=== PATIENT | female | born 1970 | race African-American/Black ===

== ENCOUNTER 2019-03-19 00:13 | Emergency (ER) | payer OTHER ==
[2019-03-19 01:14] VITALS: TEMP 98.2; BMI 44.4
--- NOTE | 2019-03-19 01:40 | PDOC ---
History of Present Illness - General Chief Complaint: Shortness of Breath Stated Complaint: DIFFICULTY BREATHING Time Seen by Provider: 03/19/19 00:52 History Source: Patient Exam Limitations: No Limitations - History of Present Illness Initial Comments: 03/19/19 01:33 48yo F with PMH of HTN presenting to ED with complaints of SOB. Pt states she has been feeling short of breath for the past week or so. She went to urgent care 2d ago was diagnosed with bronchitis and given abx, inhaler and prednisone. Since starting the antibiotics, she has been having occasional coughs productive of yellow phlegm. She states that when she got out of bed to use the restroom tonight she felt so short of breath that she called ems. Pt says that she has felt more short of breath with exertion for the past week and it has not changed in intensity. Also endorses bilateral leg swelling and weight gain. She also feels discomfort when taking in deep breaths located substernally. Denies fevers, chills, chest pain, abdominal pain, n/v/d, urinary symptoms, lightheadedness, recent travel, recent surgeries, history of blood clots, calf pain. Her father had an KS in his 50s. She was placed on NRB by EMS , she did not get any treatments. PMD: C PMH: see hpi PSH: none Meds: Enalapril, Zytec Allergies: PCN (hives) Social: 10 cigarettes/day Past History - Past Medical History Allergies/Adverse Reactions: Allergies Allergy/AdvReac Type Severity Reaction Status Date / Time Penicillins Allergy Intermediate Swelling Verified 12/16/14 17:04 Home Medications: Ambulatory Orders Albuterol 2.5/Ipratropium 0.5 [Duoneb -] 1 amp NEB Q4H #20 amp 03/19/19 Albuterol Sulfate Inhaler - [Ventolin Hfa Inhaler -] 1 - 2 inh PO Q4H 03/19/19 Azithromycin [Zithromax -] 250 mg PO DAILY 03/19/19 Enalapril Maleate [Vasotec -] 10 mg PO DAILY 03/19/19 Nebulizer [Aeroeclipse II] 1 each MC DAILY #1 each 03/19/19 HTN: Yes - Surgical History Abdominal Surgery: Yes Appendectomy: Yes - Suicide/Smoking/Psychosocial Hx Smoking History: Never smoked Have you smoked in the past 12 months: No Number of Cigarettes Smoked Daily: 8 Information on smoking cessation initiated: No Hx Alcohol Use: No Drug/Substance Use Hx: No Substance Use Type: None Review of Systems - Review of Systems Constitutional: No: Chills, Fever HEENTM: No: Symptoms Reported Respiratory: Yes: See HPI, Cough, Shortness of Breath. No: Wheezing Cardiac (ROS): No: Chest Pain, Lightheadedness, Palpitations, Syncope, Chest Tightness ABD/GI: No: Symptoms Reported : No: Symptoms Reported Musculoskeletal: No: Symptoms Reported Integumentary: No: Symptoms Reported Neurological: No: Symptoms reported *Physical Exam - Vital Signs Last Vital Signs Temp Pulse Resp BP Pulse Ox 98.2 F 116 H 22 H 163/96 98 03/19/19 01:10 03/19/19 01:10 03/19/19 01:10 03/19/19 01:10 03/19/19 01:10 - Physical Exam General Appearance: Yes: Appropriately Dressed, Obese. No: Apparent Distress HEENT: positive: EOMI, FILIPE, Normal ENT Inspection Neck: positive: Trachea midline, Supple. negative: Lymphadenopathy (R), Lymphadenopathy (L) Respiratory/Chest: positive: Wheezing (at bases) Cardiovascular: positive: S1, S2, Tachycardia. negative: Edema, JVD, Murmur Vascular Pulses: Dorsalis-Pedis (R): 2+, Doralis-Pedis (L): 2+ Gastrointestinal/Abdominal: positive: Normal Bowel Sounds, Soft Musculoskeletal: negative: CVA Tenderness Extremity: positive: Normal Capillary Refill. negative: Swelling, Calf Tenderness, Erythema Integumentary: positive: Normal Color, Dry, Warm Neurologic: positive: surgical services assistant II-XII NML intact, Fully Oriented, Alert, Normal Mood/ Affect, Normal Response, Motor Strength / ED Treatment Course - LABORATORY CBC & Chemistry Diagram: 03/19/19 01:26 03/19/19 01:26 - RADIOLOGY Radiology Studies Ordered: Category Date Time Status CHEST PA & LAT [RAD] Stat Radiology 03/19/19 00:53 Ordered Medical Decision Making - Medical Decision Making 03/19/19 01:39 48yo F with PMH of HTN presenting to ED with complaints of SOB. Pt states she has been feeling short of breath for the past week or so. She went to urgent care 2d ago was diagnosed with bronchitis and given abx, inhaler and prednisone. Since starting the antibiotics, she has been having occasional coughs productive of yellow phlegm. She states that when she got out of bed to use the restroom tonight she felt so short of breath that she called ems. Pt says that she has felt more short of breath with exertion for the past week and it has not changed in intensity. Also endorses bilateral leg swelling and weight gain. She also feels discomfort when taking in deep breaths located substernally. Denies fevers, chills, chest pain, abdominal pain, n/v/d, urinary symptoms, lightheadedness, recent travel, recent surgeries, history of blood clots, calf pain. Her father had an KS in his 50s. She was placed on NRB by EMS , she did not get any treatments. Vitals: tachycardia, tachypnea, afebrile PE: slight wheezing in lower lung mabry, tachycardic, no pitting edema, obese Ddx includes but not limited to acs, pe, chf, copd, bronchitis, pna, pneumomediastinum, pleurisy, effusion, malignancy, electrolyte/metabolic abnormality -ekg, cxr -trop, cmp, cbc, d-dimer -iv fluids, duoneb 03/19/19 02:11 ekg: sinus tachycardia at 109bpm, pr 128, qtc 457. no dontrell or depresions, no twi. 03/19/19 07:52 labs show white count (pt on steroids) all other labs wnl. CTA negative for PE and negative for acute lung pathology. pt states she is feeling better, feels better with nebulized treatments. will give rx for nebulizer. negative trop, negative CTA. pt stable for dc home. given return precautions. pt verbalized understanding. *DC/Admit/Observation/Transfer Diagnosis at time of Disposition: SOB (shortness of breath) - Discharge Dispostion Disposition: HOME Condition at time of disposition: Improved Decision to Admit order: No - Prescriptions Prescriptions: Albuterol 2.5/Ipratropium 0.5 [Duoneb -] 1 amp NEB Q4H #20 amp Nebulizer [Aeroeclipse II] 1 each DAILY #1 each - Referrals Referrals: Cheko Harmon MD [Staff Physician] - - Patient Instructions Printed Discharge Instructions: DI for Shortness of Breath Additional Instructions: You were seen in the emergency room today for shortness of breath. The CT scan was normal and your blood work is also normal. This could be due to the bronchitis. I highly recommend that you make an appointment with your primary care doctor in the next few days. Try to schedule an appointment on Friday. A prescription for the nebulizers was sent to your pharmacy. This may or may not be covered by your insurance. Continue taking your mediations as prescribed. I recommend making an appointment with a acetone button paster. Information is provided below. Come back to the emergency room if you continue to feel short of breath or if symptoms get worse, you have chest pain, you develop fever or if any new concerning symptom develops. Thank you - Post Discharge Activity
[2019-03-19] MEDS ORDERED: SODIUM CHLORIDE 1,000 ML IV STA (01:41)
[2019-03-19] MEDS ORDERED: ALBUTEROL SO4 2.5/IPRATROPIUM 0.5 INH SOL 3 ML VIAL.NEB. NEB ONE ×2 (01:48→01:54)
[2019-03-19 01:59] LABS: BASO % 0.1 % (0-2.0); HEMATOCRIT 41.3 % (32.4-45.2); HEMOGLOBIN 13.3 GM/dL (10.7-15.3); LYMPH % 7.9 % (8-40); MCH 26.5 pg (25.7-33.7); MCHC 32.3 g/dl (32.0-36.0); MEAN CELL VOLUME 82.1 fl (80-96); MEAN PLT VOLUME 8.3 fl (7.5-11.1); MONO % 3.8 % (3.8-10.2); NEUT % 88.2 % (42.8-82.8); PLATELET COUNT 233 K/MM3 (134-434); RBC 5.03 M/mm3 (3.60-5.2); RDW 18.3 % (11.6-15.6); WHITE BLOOD COUNT 14.8 K/mm3 (4.0-10.0)
--- NOTE | 2019-03-19 02:16 | PDOC ---
Documentation entered by Foster Saldana SCRIBE, acting as scribe for Ghislaine Koehler MD. Ghislaine Koehler MD: This documentation has been prepared by the Les verma Xhesika, SCRIBE, under my direction and personally reviewed by me in its entirety. I confirm that the documentation accurately reflects all work, treatment, procedures, and medical decision making performed by me. Attending Attestation - Resident Resident Name: Grace Sepulveda - ED Attending Attestation I have performed the following: I have examined & evaluated the patient, The case was reviewed & discussed with the resident, I agree w/resident's findings & plan - HPI HPI: 03/19/19 01:33 The patient is a 48 year old female with a significant medical history of HTN who present to the ED with 1 week of SOB; tonight she got up to go the bathroom , sat down and felt winded and "could not catch my breath." The patient states she went to Urgent Care ~2 days ago, was diagnosed with bronchitis likely from allergies and was started on z pack and prednisone with albuterol inhaler. The patient states she has been endorsing cough with yellow phlegm ever since she started her medication and the albuterol. Patient notes she has been endorsing bilateral leg swelling and chest discomfort with deep inspiration. previously used a diuretic for lower extrem fluid retention. Patient notes she has a family history of heart problems (father from a heart attack). no travel. no sick contacts. no congestion. The patient denies headache and dizziness. Denies fever, chills, nausea, vomiting, diarrhea and constipation. no syncope. Denies dysuria, frequency, urgency and hematuria. Allergies: Penicillins 03/19/19 02:11 - Physicial Exam PE: 03/19/19 01:34 Agree with the resident's HPI and PE as documented in the electronic medical record. NAD, well appearing, morbidly obese, EOMI, PERRL, nl conjunctiva, anicteric; neck supple. lungs clear, +tachycardic, abdomen soft nontender. Back nontender. PUTNAM x4, no focal neuro deficits. No peripheral edema. normal color for ethnicity , WWP. 03/19/19 02:13 - Medical Decision Making 03/19/19 02:13 See HPI for details. Prior notes reviewed, including admissions, discharges and consultations. Vital signs reviewed, +tachycardic. DDx SOB: ACS, PE, PTX, CHF, COPD exac, pulmonary edema, pleurisy, pneumonia, viral syndrome. effusion. anemia, electrolyte/metabolic derangements. laboratory results and imaging reviewed, basic labs and lytes wnl, cards panel, trop, d dimer, cxr to check for edema/infection wells score 1.5 for tachycardia can dimer EKG normal sinus rhythm at 109 bpm, no interval abnormalities, narrow QRS, ST and T wave segments and morphology normal. ED course -interventions: duoneb x1 reassess pending labs/dimer/cxr, dispo pending reeval, s/o to Dr Rahman overnight for full disposition Heart Score/ECG Review #1 ECG reviewed & interpreted by me at: 00:55 General ECG Interpretation: Sinus Rhythm, Normal Intervals, No acute ischemic changes Compared to previous ECG there are: Previous ECG unavail 03/19/19 02:15 EKG normal sinus rhythm at 109 bpm, no interval abnormalities, narrow QRS, ST and T wave segments and morphology normal.
[2019-03-19 02:30] LABS: ALBUMIN 3.6 g/dl (3.4-5.0); ALK PHOS 139 U/L (45-117); ANION GAP 6 MMOL/L (8-16); BILIRUBIN,TOTAL 0.3 mg/dL (0.2-1); BLOOD UREA NITROGEN 20.3 mg/dL (7-18); CALCIUM 9.6 mg/dL (8.5-10.1); CHLORIDE 101 mmol/L (98-107); CO2 30 mmol/L (21-32); SGOT/AST 91 U/L (15-37); SGPT/ALT 92 U/L (13-61); SODIUM 138 mmol/L (136-145); TOT PROT 7.9 g/dl (6.4-8.2)
[2019-03-19 02:33] LABS: GLUCOSE,RANDOM 374 mg/dL (74-106)
[2019-03-19 05:22] VITALS: BP 150/83; PULSE 77
--- NOTE | 2019-03-19 13:31 | EKG ---
Test Reason : Blood Pressure : / mmHG Vent. Rate : 109 BPM Atrial Rate : 109 BPM P-R Int : 128 ms QRS Dur : 082 ms QT Int : 340 ms P-R-T Axes : 049 -12 071 degrees QTc Int : 457 ms POOR DATA QUALITY, INTERPRETATION MAY BE ADVERSELY AFFECTED SINUS TACHYCARDIA MINIMAL VOLTAGE CRITERIA FOR LVH, MAY BE NORMAL VARIANT NO PREVIOUS ECGS AVAILABLE Confirmed by MAGAN GREY MD ([id number]) on 03/19/2019 1:30:45 PM Referred By: Confirmed By:MAGAN GREY MD
== END 2019-03-19 05:40 | disposition home or self-care (01) ==
LOC: JER 00:13
PROC: 3E0F7GC Introduction of Other Therapeutic Substance into Respiratory Tract, Via Natural or Artificial Opening (ICD-10-PCS; principal; 2019-03-19)
PROC: 3E0337Z Introduction of Electrolytic and Water Balance Substance into Peripheral Vein, Percutaneous Approach (ICD-10-PCS; 2019-03-19)
DX: R06.02 Shortness of breath (principal); I10 Essential (primary) hypertension
CPT/HCPCS: 36415; 71275-TC; 80053; 84484; 84703; 85025; 85379; 93005; 93010; 99283-25; J7030